=== PATIENT | male | born 1955 ===

== ENCOUNTER 2020-10-16 10:47 | Outpatient (REF) | payer SELFPAY ==
[2020-10-16 11:57] LABS: Cholesterol 163 mg/dL
[2020-10-16 12:22] LABS: SARS COV2 IgG Negative (Negative)
== END 2020-10-16 10:48 | disposition home or self-care (01) ==
LOC: HO.LNC 10:47
PROVIDERS: Visit Provider Pathology Anatomic Pathology & Clinical Pathology
DX: Z13.89 Encounter for screening for other disorder (principal)
CPT/HCPCS: 36415; 82465; 86769